=== PATIENT | female | born 1935 | race Caucasian/White ===

== ENCOUNTER 2017-04-12 12:33 | Outpatient (CLI) | payer MEDICARE, MEDICAID | END 2017-04-12 12:34 | disposition home or self-care (01) | LOC: LAB.F 12:33 | PROVIDERS: ATTEND Internal Medicine | DX: E78.00 Pure hypercholesterolemia, unspecified (principal); M81.0 Age-related osteoporosis without current pathological fracture ==

== ENCOUNTER 2017-04-12 12:39 | Outpatient (CLI) | payer MEDICARE, MEDICAID ==
[2017-04-12 19:21] LABS: ALBUMIN/GLOBULIN RATIO 1.4 (1.0-2.2); BILIRUBIN,TOTAL 0.6 mg/dL (0.2-1.0); BUN - BLOOD UREA NITROGEN 18 mg/dL (6-20); CALCIUM 9.3 mg/dL (8.5-10.3); CARBON DIOXIDE - CO2 29 mmol/L (21-32); CHLORIDE 104 mmol/L (101-111); CHOLESTEROL 285 mg/dL; CREATININE 0.8 mg/dL (0.4-1.0); GFR - MDRD 69 (>89); GLUCOSE 90 mg/dL (70-100); HDL CHOLESTEROL 72 mg/dL; LDL/HDL RATIO 2.6 (<4.4); POTASSIUM 4.2 mmol/L (3.5-5.0); SODIUM 141 mmol/L (135-145); TRIGLYCERIDES 131 mg/dL; VLDL CHOLESTEROL 26 mg/dL
== END 2017-04-12 12:40 | disposition home or self-care (01) ==
LOC: LAB.F 12:39
PROVIDERS: ATTEND Internal Medicine
DX: E78.00 Pure hypercholesterolemia, unspecified (principal); M81.0 Age-related osteoporosis without current pathological fracture
CPT/HCPCS: 36415; 80053; 80061; 82306

== ENCOUNTER 2017-05-12 15:24 | Outpatient (CLI) | payer MEDICARE, MEDICAID | END 2017-05-12 15:25 | disposition home or self-care (01) | LOC: LAB.F 15:24 | PROVIDERS: ATTEND Internal Medicine | DX: G62.9 Polyneuropathy, unspecified (principal) | CPT/HCPCS: 36415; 82607 ==

== ENCOUNTER 2018-02-15 07:27 | Outpatient (CLI) | payer MEDICARE, MEDICAID ==
[2018-02-15 12:01] LABS: BUN - BLOOD UREA NITROGEN 22 mg/dL (6-20); CALCIUM 9.2 mg/dL (8.5-10.3); CARBON DIOXIDE - CO2 28 mmol/L (21-32); CHLORIDE 105 mmol/L (101-111); CHOL/HDL RATIO 4.1 (<4.4); CHOLESTEROL 253 mg/dL; CREATININE 0.9 mg/dL (0.4-1.0); GFR - MDRD 60 (>89); GLUCOSE 101 mg/dL (70-100); HDL CHOLESTEROL 61 mg/dL; LDL CHOLESTEROL,CALCULATED 166 mg/dL; LDL/HDL RATIO 2.7 (<4.4); SODIUM 140 mmol/L (135-145); VLDL CHOLESTEROL 26 mg/dL
== END 2018-02-15 07:28 | disposition home or self-care (01) ==
LOC: LAB.F 07:27
PROVIDERS: ATTEND Internal Medicine
DX: Z00.00 Encounter for general adult medical examination without abnormal findings (principal); E78.00 Pure hypercholesterolemia, unspecified
CPT/HCPCS: 36415; 80048; 80061; 83721

== ENCOUNTER 2022-05-26 08:00 | Outpatient (CLI) | payer MEDICARE, MEDICAID ==
--- NOTE | 2022-05-27 11:38 | XRAY Report ---
PROCEDURE: Toe(s) RT INDICATIONS: RIGHT TOE INFECTION TECHNIQUE: 3 views of the second toe(s) acquired. COMPARISON: None. FINDINGS: Bones: Subtle osseous erosions at the second digit DIP joint. There is lateral subluxation of the dis fátima phalanx in relation to the middle phalanx. There is interphalangeal joint degenerative change. No suspicious lesion is identified. Hallux valgus deformity. Bones appear osteopenic. Soft tissues: Soft tissue swelling at the distal second digit. No suspicious soft tissue densities. IMPRESSION: Subtle osseous erosions at the second digit DIP joint with marked soft tissue swelling. Findings conc erning for osteomyelitis. 3 phase bone scan or MRI could be considered for further evaluation. Reviewed by: Christian Maria MD on 05/27/2022 10:37 AM HELEN Approved by: Christian Maria MD on 05/27/2022 10:37 AM HELEN Station ID: [id number]
== END 2022-05-26 23:59 | disposition home or self-care (01) ==
LOC: DI.S 08:00
PROVIDERS: ATTEND Physician Assistant
DX: L08.9 Local infection of the skin and subcutaneous tissue, unspecified (principal); M85.88 Other specified disorders of bone density and structure, other site
CPT/HCPCS: 87070; 87205

== ENCOUNTER 2022-05-26 20:36 | Outpatient (CLI) | payer MEDICARE, MEDICAID | END 2022-05-26 20:37 | disposition short-term general hospital (02) | LOC: EMS 20:36 | DX: L08.9 Local infection of the skin and subcutaneous tissue, unspecified (principal); R41.0 Disorientation, unspecified; F03.90 Unspecified dementia, unspecified severity, without behavioral disturbance, psychotic disturbance, mood disturbance, and anxiety | CPT/HCPCS: A0425; A0429 ==